=== PATIENT | male | born 1965 | race Caucasian/White ===

== ENCOUNTER 2019-11-22 11:34 | Emergency (ER) | payer OTHER ==
[~2019-11-22] VITALS: Ht 177.8 cm; Wt 81.5 kg
--- NOTE | 2019-11-22 12:15 | NUR ---
PT TO ROOM FROM LOBBY AT THIS TIME.
--- NOTE | 2019-11-22 12:28 | NUR ---
DR STEELE BS FOR EXAM.
[2019-11-22] MEDS ORDERED: LIDOCAINE 1%-EPI 1:100K, 20ML INFIL ONE (12:30)
[2019-11-22 12:33] VITALS: BP 134/82
[2019-11-22] MEDS ORDERED: EMPA1TAB21 PO (12:37)
[2019-11-22] MEDS ORDERED: ATOR20TA37 PO (12:37)
[2019-11-22] MEDS ORDERED: GLIM2TAB7 PO (12:37)
[2019-11-22] MEDS ORDERED: CITA40TA12 PO (12:37)
[2019-11-22] MEDS ORDERED: MELO15TA24 PO (12:37)
[2019-11-22] MEDS ORDERED: DULA1.5P SQ (12:37)
[2019-11-22] MEDS ORDERED: LIDOCAINE 1%-EPI 1:100K, 20ML ONE (12:40)
--- NOTE | 2019-11-22 12:40 | NUR ---
LIDOCAINE W/ EPI VIAL GIVEN TO PROVIDER FOR ADMINISTRATION
--- NOTE | 2019-11-22 12:46 | NUR ---
PT REPORT TO GEMMA MACARIO. PT CARE TRANSFERRED.
--- NOTE | 2019-11-22 12:55 | NUR ---
SBAR HAND-OFF REPORT RECEIVED FROM GEMMA ALANIS. ASSUMING CARE OF PATIENT.
--- NOTE | 2019-11-22 13:37 | NUR ---
Patient given discharge instructions and they have confirmed that they understand the instructions. Patient ambulatory with steady gait.
== END 2019-11-22 13:38 | disposition home or self-care (01) ==
LOC: ED 13:32
DX: L03.221 Cellulitis of neck (principal); L02.11 Cutaneous abscess of neck; E11.9 Type 2 diabetes mellitus without complications
CPT/HCPCS: 10060; 99284; J3490

== ENCOUNTER 2019-11-24 10:01 | Emergency (ER) | payer OTHER ==
[~2019-11-24] VITALS: Ht 177.8 cm; Wt 81.3 kg
[~2019-11-24 10:01] MED LIST: ATOR20TA37 PO; CITA40TA12 PO; DULA1.5P SQ; EMPA1TAB21 PO; GLIM2TAB7 PO; MELO15TA24 PO
[2019-11-24 10:04] VITALS: BP 128/82
== END 2019-11-24 10:44 | disposition home or self-care (01) ==
LOC: ED 10:37
DX: Z48.01 Encounter for change or removal of surgical wound dressing (principal); E11.9 Type 2 diabetes mellitus without complications
CPT/HCPCS: 99281

== ENCOUNTER 2020-12-29 11:46 | Emergency (ER) | payer OTHER ==
[~2020-12-29] VITALS: Ht 177.8 cm; Wt 81.1 kg
[2020-12-29 12:25] LABS: BASOPHILS % (AUTO) 1 % (0-1); EOSINOPHILS % (AUTO) 2 % (1-7); LYMPHOCYTES % (AUTO) 11 % (22-44); MD NO; MEAN CORPUSCULAR HEMOGLOBIN 32.5 pg (27.5-34.5); MEAN CORPUSCULAR HGB CONC 34.2 g/dL (33.2-36.2); MEAN PLATELET VOLUME 7.8 fL (7.4-10.4); MONOCYTES % (AUTO) 9 % (2-9); NEUTROPHILS % (AUTO) 76 % (42-75); PLATELET COUNT 224 x10^3/uL (130-400); RED BLOOD COUNT 4.28 x10^6/uL (4.38-5.82)
[2020-12-29 12:31] LABS: ALBUMIN 4.1 g/dL (3.4-5.0); ANION GAP 5 mmol/L (5-15); CALCIUM 9.1 mg/dL (8.5-10.1); CHLORIDE 101 mmol/L (98-107)
--- NOTE | 2020-12-29 16:40 | NUR ---
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
--- NOTE | 2020-12-29 16:45 | NUR ---
First contact with patient: patient presents to ER c/o cyst on right buttock x1 week. Patient states it started as something that looked like a pimple but now it is big. Patient in NAD. Respirations even and unlabored.
[2020-12-29 19:25] VITALS: BP 138/77
[2020-12-29] MEDS ORDERED: LIDOCAINE 1%-EPI 1:100K, 20ML ONE (19:28)
[2020-12-29] MEDS ORDERED: LIDOCAINE 1%-EPI 1:100K, 20ML INFIL ONE (19:30)
[2020-12-29] MEDS ORDERED: HYDROcodone/APAP 5/325 TABLET PO ONE (19:30)
[2020-12-29] MEDS ORDERED: HYDROcodone/APAP 5/325 TABLET ONE (19:39)
[2020-12-29] MEDS ORDERED: NEOSPORIN OINT. PKT 1 PACKET ONE (20:27)
--- NOTE | 2020-12-29 20:41 | NUR ---
Applied bacitracin and dressed patient's wound. Discharge instructions given. All questions and concerns addressed. Patient ambulatory with a steady gait. Belongings with patient.
== END 2020-12-29 20:42 | disposition home or self-care (01) ==
LOC: ED 14:36
DX: L03.317 Cellulitis of buttock (principal); L02.31 Cutaneous abscess of buttock; E11.9 Type 2 diabetes mellitus without complications
CPT/HCPCS: 10060; 36415; 80048; 82040; 82962; 83605; 85025; 99283